=== PATIENT | male | born 1950 | race Caucasian/White ===

== ENCOUNTER 2016-11-29 16:08 | Emergency (ER) | payer OTHER ==
[2016-11-29 18:00] VITALS: BP 134/93
== END 2016-11-29 18:00 | disposition short-term general hospital (02) | DRG 605 ==
LOC: ED 16:08
DX: S51.831A Puncture wound without foreign body of right forearm, initial encounter (principal); R20.2 Paresthesia of skin; R22.31 Localized swelling, mass and lump, right upper limb; W25.XXXA Contact with sharp glass, initial encounter; Y93.E9 Activity, other interior property and clothing maintenance; Y92.009 Unspecified place in unspecified non-institutional (private) residence as the place of occurrence of the external cause